=== PATIENT | male | born 1975 | race Caucasian/White ===

== ENCOUNTER 2018-08-21 15:53 | Emergency (ER) | payer BC, OTHER ==
[~2018-08-21 15:53] MED LIST: ASPE325 PO; AUG875 PO; CARV12.577 PO; ENA5 PO; IBU800 PO; IBUP-1618 PO; LANS30CA70 PO; LANS30SU PO; LOR5/325 PO; METXR500 PO; PAN40 PO; PER PO; SIMV-44 PO
[2018-08-21 16:08] VITALS: BP 135/79
--- NOTE | 2018-08-21 16:23 | ER Report ---
History and Physical Time Seen By MD: 16:24 Hx. of Stated Complaint: LEFT FLANK PAIN X 2 MONTHS, WORSE IN LAST 2 WEEKS, HX OF KIDNEY STONES, "THIS ONE WON'T COME OUT", PT REPORTS BLOOD IN URINE HPI/ROS 43-year-old male with known left sided kidney stone per his own history. He has had multiple kidney stones in the past. Stones are usually right sided per the patient. He felt this particular stone come into his ureter approximately 1-2 weeks ago. At that time he also started with hematuria. The pain is minimal. He came to the emergency department, because he does not think the stone is moving. No nausea vomiting. No fever chills. He describes pain as 2 out of 10. No abdominal pain. No dysuria. Remainder of the 14 system rev: Yes Allergies: Coded Allergies: hydrocodone (Verified Adverse Reaction, Mild, NAUSEA/VOMITING, 08/21/18) Home Meds Active Scripts Tamsulosin Hcl (FLOMAX) 0.4 Mg Cap.er.24h, 0.4 MG PO QDAY, #5 CAP 0 Refills Prov:NICHO MUSA MD 08/21/18 Oxycodone Hcl/Acetaminophen (OXYCODONE-ACETAMINOPHEN 5-325) 1 Each Tablet, 1 EACH PO Q6H for PAIN for 4 Days, #12 TAB Prov:NICHO MUSA MD 08/21/18 Ondansetron Hcl (ZOFRAN) 4 Mg Tablet, 4 MG PO Q6H PRN for NAUSEA for 5 Days, #14 TAB Prov:NICHO MUSA MD 08/21/18 Reported Medications Acetaminophen/Hydrocodone (Lortab 5/325 Mg) 5 Mg/325 Mg Tab, 1 - 2 TAB PO Q6H, 0 Refills 03/09/12 Amoxicillin/Clavulanate K (Augmentin) 875 Mg Tab, 875 MG PO BIDBS, #20 0 Refills 03/09/12 Enalapril Maleate (Vasotec) 5 Mg Tab, 5 MG PO BID, 0 Refills 03/09/12 Simvastatin (Zocor) 40 Mg Tablet, 40 MG PO QHS, 0 Refills 03/09/12 Pantoprazole Sod (Protonix) 40 Mg Tabec, 40 MG PO QDAY, 0 Refills 03/09/12 Metformin Hcl (Metformin Er) 500 Mg Tab.sr.24h, 1000 MG PO BID, 0 Refills 03/09/12 Carvedilol (Coreg) 12.5 Mg Tablet, 12.5 MG PO BID, 0 Refills 03/09/12 Aspirin (ECOTRIN (OR EQUIV)) 325 Mg Tabec, 325 MG PO QDAY, 0 Refills 03/09/12 Ibuprofen (Motrin) 400 Mg Tablet, 400 MG PO PRN, #30 0 Refills 08/10/10 Reviewed Nurses Notes: Yes Old Medical Records Reviewed: Yes Hx Smoking: No Hx Alcohol Use: Yes (OCC) Constitutional Vital Sign - Last 24 Hours 08/21/18 16:08 Temp 98.1 Pulse 80 Resp 18 B/P (MAP) 135/79 Pulse Ox 91 O2 Delivery Room Air Physical Exam General Appearance: The patient is alert, has no immediate need for airway protection and no current signs of toxicity. Eyes: Pupils equal and round no injection. Respiratory: Chest is non tender, lungs are clear to auscultation. Cardiac: regular rate and rhythm Gastrointestinal: Abdomen is soft and non tender, no masses, bowel sounds normal. Musculoskeletal: Mild left sided flank TTP Neck: Neck is supple and non tender. Extremities have full range of motion and are non tender. Skin: No rashes or lesions. Medical Decision Making Data Points Result Diagram: 08/21/18 1635 08/21/18 1635 Laboratory Hematology Test 08/21/18 16:35 Red Blood Count 4.88 M/uL (4.00-5.60) Mean Corpuscular Volume 86.1 fL (80.0-96.0) Mean Corpuscular Hemoglobin 28.9 pg (26.0-33.0) Mean Corpuscular Hemoglobin Concent 33.5 g/dL (32.0-36.0) Red Cell Distribution Width 12.8 % (11.5-14.5) Mean Platelet Volume 7.9 fL (7.2-11.1) Neutrophils (%) (Auto) 61.5 % (39.4-72.5) Lymphocytes (%) (Auto) 28.9 % (17.6-49.6) Monocytes (%) (Auto) 8.3 % (4.1-12.4) Eosinophils (%) (Auto) 1.1 % (0.4-6.7) Basophils (%) (Auto) 0.2 % (0.3-1.4) Nucleated RBC Relative Count (auto) 0.1 /100WBC Neutrophils # (Auto) 7.2 K/uL (2.0-7.4) Lymphocytes # (Auto) 3.4 K/uL (1.3-3.6) Monocytes # (Auto) 1.0 K/uL (0.3-1.0) Eosinophils # (Auto) 0.1 K/uL (0.0-0.5) Basophils # (Auto) 0.0 K/uL (0.0-0.1) Nucleated RBC Absolute Count (auto) 0.01 K/uL Sodium Level 141 mmol/L (137-145) Potassium Level 3.7 mmol/L (3.5-5.0) Chloride Level 105 mmol/L (98-107) Carbon Dioxide Level 25 mmol/L (22-30) Blood Urea Nitrogen 11 mg/dl (9-21) Creatinine 0.80 mg/dl (0.66-1.25) Glomerular Filtration Rate Calc > 60.0 Random Glucose 134 mg/dl (75-110) Calcium Level 8.9 mg/dl (8.4-10.2) Total Bilirubin 0.5 mg/dl (0.2-1.3) Aspartate Amino Transf (AST/SGOT) 30 U/L (0-35) Alanine Aminotransferase (ALT/SGPT) 43 U/L (0-56) Alkaline Phosphatase 69 U/L (0-126) Total Protein 7.3 g/dl (6.3-8.2) Albumin 4.0 g/dl (3.5-5.0) Chemistry Test 08/21/18 16:35 White Blood Count 11.8 k/uL (4.5-11.0) Red Blood Count 4.88 M/uL (4.00-5.60) Hemoglobin 14.1 g/dL (14.0-18.0) Hematocrit 42.0 % (42.0-52.0) Mean Corpuscular Volume 86.1 fL (80.0-96.0) Mean Corpuscular Hemoglobin 28.9 pg (26.0-33.0) Mean Corpuscular Hemoglobin Concent 33.5 g/dL (32.0-36.0) Red Cell Distribution Width 12.8 % (11.5-14.5) Platelet Count 220 K/uL (150-450) Mean Platelet Volume 7.9 fL (7.2-11.1) Neutrophils (%) (Auto) 61.5 % (39.4-72.5) Lymphocytes (%) (Auto) 28.9 % (17.6-49.6) Monocytes (%) (Auto) 8.3 % (4.1-12.4) Eosinophils (%) (Auto) 1.1 % (0.4-6.7) Basophils (%) (Auto) 0.2 % (0.3-1.4) Nucleated RBC Relative Count (auto) 0.1 /100WBC Neutrophils # (Auto) 7.2 K/uL (2.0-7.4) Lymphocytes # (Auto) 3.4 K/uL (1.3-3.6) Monocytes # (Auto) 1.0 K/uL (0.3-1.0) Eosinophils # (Auto) 0.1 K/uL (0.0-0.5) Basophils # (Auto) 0.0 K/uL (0.0-0.1) Nucleated RBC Absolute Count (auto) 0.01 K/uL Glomerular Filtration Rate Calc > 60.0 Calcium Level 8.9 mg/dl (8.4-10.2) Total Bilirubin 0.5 mg/dl (0.2-1.3) Aspartate Amino Transf (AST/SGOT) 30 U/L (0-35) Alanine Aminotransferase (ALT/SGPT) 43 U/L (0-56) Alkaline Phosphatase 69 U/L (0-126) Total Protein 7.3 g/dl (6.3-8.2) Albumin 4.0 g/dl (3.5-5.0) EKG/Imaging Imaging Results: CT scan of the abdomen/pelvis was obtained. The results of the study are 5mm non obstructing left ureteral stone. The study was read by the radiologist. I viewed the images myself on the PACS system. ED Course/Re-evaluation ED Course Uncomplicated 5 mm ureteral calculi on the left side. It is not obstructing. The patient has normal labs and is urinating. No nausea vomiting. Fever chills. The patient feels as if the stone is not progressing. I gave him pain medication for over the weekend, and counseled him to call a urologist on Friday for follow-up and definitive care. Decision to Disposition Date: Aug 21, 2018 Decision to Disposition Time: 17:43 Depart Departure Latest Vital Signs Vital Signs Date Time Temp Pulse Resp B/P (MAP) Pulse Ox O2 Delivery O2 Flow Rate FiO2 08/21/18 16:08 98.1 80 18 135/79 91 Room Air Impression: Primary Impression: Ureteral calculus, left Condition: Improved Disposition: HOME OR SELF-CARE Referrals: ALEKSEY DIAZ MD (PCP) ESEQUIEL NICHOLE MD New Scripts Tamsulosin Hcl (FLOMAX) 0.4 Mg Cap.er.24h 0.4 MG PO QDAY, #5 CAP 0 Refills Prov: NICHO MUSA MD 08/21/18 Oxycodone Hcl/Acetaminophen (OXYCODONE-ACETAMINOPHEN 5-325) 1 Each Tablet 1 EACH PO Q6H for PAIN for 4 Days, #12 TAB Prov: NICHO MUSA MD 08/21/18 Ondansetron Hcl (ZOFRAN) 4 Mg Tablet 4 MG PO Q6H PRN for NAUSEA for 5 Days, #14 TAB Prov: NICHO MUSA MD 08/21/18 Patient Instructions: Kidney Stones (ED) NICHO MUSA MD Aug 21, 2018 16:23
[2018-08-21] MEDS ORDERED: NS(*) 0.9% 1000 ML BAG 1,000 ML IV ONE (16:25)
[2018-08-21] MEDS ORDERED: KETOROLAC 30 MG/ML VIAL IVP ONE (16:25)
[2018-08-21 16:44] LABS: PLATELET COUNT, AUTOMATED 220 K/uL (150-450)
--- NOTE | 2018-08-21 17:22 | RADIOLOGY IMAGING REPORT ---
FACILITY: [facility] - [place] PATIENT NAME: Bess Medel : 1975 MR: [id number] V: [id number] EXAM DATE: ORDERING PHYSICIAN: NICHO MUSA TECHNOLOGIST: Location: [facility] - [place] Patient: Bess Medel : 1975 Visit/Account:[id number] Date of Sevice: 08/21/2018 ABDOMEN/PELVIS W/O CONTRAST HISTORY: No kidney stone TECHNIQUE: Axial images acquired through the abdomen/pelvis. Coronal and sagittal reformatting also performed. No IV contrast administered. One of the following dose optimization techniques was utili zed in the performance of this exam: Automated exposure control; adjustment of the mA and/or kV accor ding to the patient's size; or use of an iterative reconstruction technique. Specific details can b e referenced in the facility's radiology CT exam operational policy. COMPARISON: None. FINDINGS: Visualized lung bases: Negative. Hepatobiliary: Negative. Spleen: Negative. Adrenals: Negative. Pancreas: Negative. Kidneys ureters and bladder: There are 3 nonobstructive stones seen in the right kidney, the largest measuring 5 mm in diameter. There are 6 nonobstructive stones seen in the left kidney, the largest me asuring 3 mm diameter. There is also a nonobstructive stone which is lodged in the left mid ureter (a xial image 110 series 2 and coronal image 76) which measures 5 mm diameter. Urinary bladder normal. Genitalia: Negative. GI: Negative. No evidence of diverticulosis. Appendix is retrocecal and normal. Vessels/spaces/nodes: Negative. Bones/soft tissues: Negative. Additional findings: None pertinent. IMPRESSION: Nonobstructive bilateral nephrolithiasis. Nonobstructive 5 mm stone lodged in the left mid ureter. Report Dictated By: Bennett Rocha MD at 08/21/2018 5:12 PM Report E-Signed By: Bennett Rocha MD at 08/21/2018 5:18 PM [id number]
[2018-08-21] MEDS ORDERED: TAMS0.4C25 PO (17:45)
[2018-08-21] MEDS ORDERED: ONDA4TAB97 PO (17:45)
[2018-08-21] MEDS ORDERED: OXYC-373 PO (17:45)
== END 2018-08-21 17:55 | disposition home or self-care (01) ==
LOC: ER 16:42
DX: N20.1 Calculus of ureter (principal)
CPT/HCPCS: 74176; 82040; 82247; 82310; 82374; 82435; 82565; 82947; 84075; 84132; 84155; 84295; 84450; 84460; 84520; 85025; 99284